=== PATIENT | female | born 1930 | race Caucasian/White ===

== ENCOUNTER 2019-12-06 06:11 | Inpatient (IN) ==
[2019-12-06] MEDS ORDERED: Ringers Solution, Lactated 1,000 ML IVC SCH ×2 (06:30→10:39)
[2019-12-06] MEDS ORDERED: Acetaminophen IV 1,000 MG/100 ML BAG IVPB ONE (07:00)
[2019-12-06] MEDS ORDERED: Famotidine 20 MG/2 ML VIAL IVP ONE (07:00)
[2019-12-06] MEDS ORDERED: *HR* Phenylephrine 10 MG/ML VIAL ONE (07:16)
[2019-12-06] MEDS ORDERED: *HR* Propofol 200 MG/20 ML VIAL IVP ONE (07:22)
[2019-12-06] MEDS ORDERED: *HR* FentaNYL (PF) 100 MCG/2 ML VIAL ONE (07:22)
[2019-12-06] MEDS ORDERED: Ondansetron 4 MG/2 ML VIAL ONE ×2 (07:22→09:10)
[2019-12-06] MEDS ORDERED: *HR* Rocuronium Bromide 50 MG/5 ML VIAL ONE ×2 (07:22→09:09)
[2019-12-06] MEDS ORDERED: Lidocaine -MPF 2% 2 ML VIAL ONE (07:22)
[2019-12-06] MEDS ORDERED: Dexamethasone 4 MG/ML VIAL ONE (07:22)
[2019-12-06] MEDS ORDERED: Lidocaine -MPF 4% 5 ML AMPUL ONE (07:22)
[2019-12-06] MEDS ORDERED: Clindamycin 600 MG/50 ML 600 MG/50 ML IV.SOLN IVPB ONE (07:27)
[2019-12-06] MEDS ORDERED: *HR* Vasopressin 20 UNIT/ML VIAL ONE (07:28)
[2019-12-06] MEDS ORDERED: *HR* OxyCODONE Immed Rel 5 MG TABLET PO PRN (09:00)
[2019-12-06] MEDS ORDERED: *HR* HYDROmorphone (PF) 1 MG/ML SYRINGE IVP PRN (09:00)
[2019-12-06] MEDS ORDERED: *HR* Labetalol 20 MG/4 ML SYRINGE IVP PRN (09:00)
[2019-12-06] MEDS ORDERED: *HR* Promethazine 25 MG/ML VIAL IVP PRN (09:00)
[2019-12-06] MEDS ORDERED: *HR* HYDROmorphone 2 MG TABLET PO PRN (09:00)
[2019-12-06] MEDS ORDERED: Ondansetron 4 MG/2 ML VIAL IVP PRN ×2 (10:33→11:32)
[2019-12-06] MEDS ORDERED: *HR* HYDROcodone/Acet 5/325 mg TABLET PO PRN (10:33)
[2019-12-06] MEDS ORDERED: tiZANidine 4 MG TABLET PO PRN ×2 (10:37→11:32)
[2019-12-06] MEDS ORDERED: Fluticasone Propionate Nasal 50 MCG/SPRAY BOTTLE NS PRN ×2 (10:37→11:32)
[2019-12-06] MEDS: Ringers Solution, Lactated 1,000 ML IVC SCH (13:48)
[2019-12-06] MEDS: *HR* HYDROcodone/Acet 5/325 mg TABLET PO PRN ×2 (13:50→20:20)
[2019-12-06] MEDS: Metoprolol 100 MG TABLET PO SCH (20:20)
[2019-12-06] MEDS ORDERED: Metoprolol 100 MG TABLET PO SCH (21:00)
[2019-12-06] MEDS ORDERED: Temazepam 15 MG CAPSULE PO SCH ×2 (21:00)
[2019-12-06] MEDS ORDERED: Nystatin Cream 15 GM TUBE TP SCH (21:00)
[2019-12-06] MEDS: Nystatin Cream 15 GM TUBE TP SCH (21:34)
[2019-12-07] MEDS: Ringers Solution, Lactated 1,000 ML IVC SCH (02:57)
[2019-12-07] MEDS ORDERED: *HR* Enoxaparin 40 MG/0.4 ML SYRINGE SQ SCH ×2 (06:00)
[2019-12-07 06:45] VITALS: BP 179/78
[2019-12-07] MEDS ORDERED: hydroCHLOROthiazide 25 MG TABLET PO SCH ×2 (09:00)
[2019-12-07] MEDS ORDERED: allopurinoL 300 MG TABLET PO SCH ×2 (09:00)
[2019-12-07] MEDS: Metoprolol 100 MG TABLET PO SCH (09:50)
[2019-12-07] MEDS: Nystatin Cream 15 GM TUBE TP SCH (09:50)
[2019-12-07 09:58] LABS: Hematocrit 41.7 % (35.3-44.9); Hemoglobin 13.3 g/dL (11.5-15.4)
== END 2019-12-07 12:28 | disposition home or self-care (01) | DRG 328 ==
LOC: SAMDAY 06:11 → 3ANU 10:33
PROVIDERS: ADMIT Surgery; ATTEND Surgery